=== PATIENT | female | born 1995 | race Two or more races ===

== ENCOUNTER 2020-05-13 15:31 | Emergency (ER) | payer OTHER ==
[~2020-05-13] VITALS: Ht 152.4 cm; Wt 110.2 kg
== END 2020-05-13 20:44 | disposition home or self-care (01) ==
LOC: ER 15:31
DX: O23.31 Infections of other parts of urinary tract in pregnancy, first trimester (principal); Z3A.09 9 weeks gestation of pregnancy

== ENCOUNTER 2020-12-09 22:26 | Outpatient (CLI) | payer OTHER | END 2020-12-10 09:40 | disposition home or self-care (01) | LOC: OBS/DEL 22:26 | PROVIDERS: ATTEND Obstetrics & Gynecology | DX: O47.1 False labor at or after 37 completed weeks of gestation (principal); Z3A.39 39 weeks gestation of pregnancy ==

== ENCOUNTER 2020-12-14 08:00 | Inpatient (IN) | payer OTHER ==
[~2020-12-14] VITALS: Ht 170.2 cm; Wt 110.2 kg
[2020-12-14] MEDS ORDERED: PRENATAL TABLE1 EAC1 PO (08:14)
== END 2020-12-16 11:38 | disposition home or self-care (01) | DRG 807 ==
LOC: LDR 08:00 → OB/GYN 08:00
PROVIDERS: ADMIT Obstetrics & Gynecology; ATTEND Obstetrics & Gynecology
PROC: 10E0XZZ Delivery of Products of Conception, External Approach (ICD-10-PCS; principal; 2020-12-14)
PROC: 10907ZC Drainage of Amniotic Fluid, Therapeutic from Products of Conception, Via Natural or Artificial Opening (ICD-10-PCS; 2020-12-14)
PROC: 3E0P7VZ Introduction of Hormone into Female Reproductive, Via Natural or Artificial Opening (ICD-10-PCS; 2020-12-14)
PROC: 4A1HXFZ Monitoring of Products of Conception, Cardiac Rhythm, External Approach (ICD-10-PCS; 2020-12-14)
DX: O99.824 Streptococcus B carrier state complicating childbirth (principal); Z37.0 Single live birth; Z3A.39 39 weeks gestation of pregnancy; Z20.822 Contact with and (suspected) exposure to COVID-19

== ENCOUNTER 2021-05-17 06:02 | Day surgery (SDC) | payer OTHER ==
[~2021-05-17 06:02] MED LIST: ASPIRIN PO; PRENATAL TABLE1 EAC1 PO; PROTONIX40 MG PO
== END 2021-05-17 21:05 | disposition home or self-care (01) ==
LOC: CIR.AMB 06:02
PROVIDERS: ATTEND Obstetrics & Gynecology
DX: Z30.2 Encounter for sterilization (principal); N73.6 Female pelvic peritoneal adhesions (postinfective); Z20.822 Contact with and (suspected) exposure to COVID-19

== ENCOUNTER 2022-10-03 05:31 | Day surgery (SDC) | payer OTHER ==
[~2022-10-03 05:31] MED LIST changes: +MULTIPLE VITAM1 EAC2 PO; +PEPCID AC20 MG PO; +ZYRTEC10 M3 PO
== END 2022-10-03 14:30 | disposition home or self-care (01) ==
LOC: CIR.AMB 05:31
PROVIDERS: ATTEND Obstetrics & Gynecology
DX: R87.613 High grade squamous intraepithelial lesion on cytologic smear of cervix (HGSIL) (principal); N84.0 Polyp of corpus uteri; Z20.822 Contact with and (suspected) exposure to COVID-19

== ENCOUNTER 2023-01-18 07:15 | Inpatient (IN) | payer OTHER ==
[~2023-01-18] VITALS: Ht 170.2 cm; Wt 113.4 kg
== END 2023-01-26 11:36 | disposition home or self-care (01) | DRG 743 ==
LOC: SURH 01-23 07:15 → O/R 01-23 10:12 → SURH 01-23 14:30 → OB/GYN 01-23 15:55
PROVIDERS: ADMIT Obstetrics & Gynecology; ATTEND Obstetrics & Gynecology
PROC: 0UT90ZZ Resection of Uterus, Open Approach (ICD-10-PCS; principal; 2023-01-23 14:30)
DX: N80.03 Adenomyosis of the uterus (principal); R87.613 High grade squamous intraepithelial lesion on cytologic smear of cervix (HGSIL); Z20.822 Contact with and (suspected) exposure to COVID-19